=== PATIENT | male | born 1985 | race Caucasian/White ===

== ENCOUNTER 2016-10-13 03:48 | Emergency (ER) | payer SELFPAY ==
[~2016-10-13] VITALS: Ht 177.8 cm; Wt 90.7 kg
== END 2016-10-13 05:20 | disposition home or self-care (01) ==
LOC: CED 03:48
DX: S01.81XA Laceration without foreign body of other part of head, initial encounter (principal); Z88.0 Allergy status to penicillin; W54.0XXA Bitten by dog, initial encounter
CPT/HCPCS: 12011; 99283

== ENCOUNTER 2016-10-14 07:44 | Emergency (ER) | payer SELFPAY ==
[~2016-10-14] VITALS: Ht 177.8 cm; Wt 90.7 kg
== END 2016-10-14 08:38 | disposition home or self-care (01) ==
LOC: CED 07:44
DX: R51 Headache (principal); F41.9 Anxiety disorder, unspecified; Z88.0 Allergy status to penicillin
CPT/HCPCS: 96374; 96375; 99283; J1100; J1200; J1885; J2765